=== PATIENT | female | born 1980 | race Two or more races ===

== ENCOUNTER 2022-09-12 16:22 | Emergency (ER) | payer OTHER ==
[2022-09-12 16:32] VITALS: BP 113/65; PULSE 92; RESP 16; TEMP 98; BMI 26.9
[2022-09-12 18:02] LABS: EPI CELLS 4 /uL (0-25.1); HYALINE CASTS 0 /uL (0-3.1); PH,URINE 7.5 (5.0-8.0); URINE APPEARANCE CLOUDY; URINE BACTERIA 495 /uL (0-1359); URINE BILIRUBIN NEGATIVE (NEGATIVE); URINE COLOR YELLOW; URINE GLUCOSE (UA) NEGATIVE (NEGATIVE); URINE KETONE TRACE (NEGATIVE); URINE LEUK ESTERASE NEGATIVE (NEGATIVE); URINE NITRITE NEGATIVE (NEGATIVE); URINE PROTEIN NEGATIVE (NEGATIVE); URINE RBC 28 /uL (0-23.9); URINE WBC 5 /uL (0-25.8)
== END 2022-09-12 18:48 | disposition home or self-care (01) ==
LOC: JER 16:22
DX: O23.591 Infection of other part of genital tract in pregnancy, first trimester (principal); N89.8 Other specified noninflammatory disorders of vagina; Z3A.01 Less than 8 weeks gestation of pregnancy
CPT/HCPCS: 81003; 87070; 87077; 87086; 87186; 87205; 99283-25

== ENCOUNTER 2023-05-14 13:24 | Emergency (ER) | payer OTHER ==
[2023-05-14 13:29] VITALS: BP 101/66; PULSE 78; RESP 18; TEMP 97.9; BMI 28.3
== END 2023-05-14 15:06 | disposition home or self-care (01) ==
LOC: JERFT 13:24
DX: M54.50 Low back pain, unspecified (principal); M54.6 Pain in thoracic spine
CPT/HCPCS: 99283-25